=== PATIENT | female | born 1965 | race Two or more races ===

== ENCOUNTER 2019-01-31 12:45 | Emergency (ER) | payer OTHER ==
[~2019-01-31] VITALS: Ht 177.8 cm; Wt 64.4 kg
[2019-01-31] MEDS ORDERED: NAPROXEN500 MG PO (20:01)
== END 2019-01-31 21:11 | disposition home or self-care (01) ==
LOC: ER 12:45
DX: S43.491A Other sprain of right shoulder joint, initial encounter (principal); S30.1XXA Contusion of abdominal wall, initial encounter; S00.83XA Contusion of other part of head, initial encounter; W18.39XA Other fall on same level, initial encounter; Y93.89 Activity, other specified; Y92.013 Bedroom of single-family (private) house as the place of occurrence of the external cause; Y99.8 Other external cause status

== ENCOUNTER → 2024-03-15 | Outpatient (CLI) | payer OTHER ==
[~2024-03-15] MED LIST: NAPROXEN500 MG PO
== END | disposition home or self-care (01) ==
LOC: MAMO-SONO 09:41
PROVIDERS: ATTEND Obstetrics & Gynecology Gynecology
DX: N60.11 Diffuse cystic mastopathy of right breast (principal); N60.12 Diffuse cystic mastopathy of left breast; D25.0 Submucous leiomyoma of uterus; D25.2 Subserosal leiomyoma of uterus; R10.2 Pelvic and perineal pain

== ENCOUNTER 2025-02-14 07:31 | Outpatient (CLI) | payer OTHER | END 2025-02-14 07:34 | disposition home or self-care (01) | LOC: SONOGRAMA 07:31 | PROVIDERS: ATTEND Internal Medicine Endocrinology, Diabetes & Metabolism | DX: E23.1 Drug-induced hypopituitarism (principal); R31.0 Gross hematuria ==